=== PATIENT | male | born 1960 | race Caucasian/White ===

== ENCOUNTER 2023-07-02 12:40 | Emergency (ER) | payer OTHER ==
[~2023-07-02] VITALS: Ht 177.8 cm; Wt 84.4 kg
[2023-07-02 12:54] VITALS: BP 164/92; PULSE 85; RESP 17; TEMP 97.2; O2SAT 96
[2023-07-02] MEDS: ACETAMINOPHEN 325 MG TAB PO ONE (15:45)
[2023-07-02] MEDS: BACITRACIN OINT 500 UNITS/GM PKT TP ONE (15:46)
[2023-07-02 16:21] VITALS: BP 135/78; PULSE 85; RESP 16; TEMP 98.2; O2SAT 96
[2023-07-02] MEDS: LIDOCAINE MPF 1% 10 MG/ML VIAL INJ ONE (16:28)
[2023-07-02] MEDS ORDERED: IBUP-2213 PO (16:37)
[2023-07-02] MEDS ORDERED: BACI-418 TP (16:37)
== END 2023-07-02 16:48 | disposition home or self-care (01) ==
LOC: MED 12:40
DX: S01.81XA Laceration without foreign body of other part of head, initial encounter (principal); S16.1XXA Strain of muscle, fascia and tendon at neck level, initial encounter; R03.0 Elevated blood-pressure reading, without diagnosis of hypertension; R93.0 Abnormal findings on diagnostic imaging of skull and head, not elsewhere classified; Z79.899 Other long term (current) drug therapy; W22.8XXA Striking against or struck by other objects, initial encounter; Y93.89 Activity, other specified; Y92.89 Other specified places as the place of occurrence of the external cause; Y99.8 Other external cause status
CPT/HCPCS: 70450; 72125; 90471; 90715; 99285